=== PATIENT | male | born 1955 | race Asian ===

== ENCOUNTER 2020-07-21 05:23 | Emergency (ER) | payer OTHER, MEDICARE ==
[~2020-07-21] VITALS: Ht 175.3 cm; Wt 86.0 kg
[2020-07-21 06:17] LABS: BASOPHILS % 0.8 % (0.0-2.0); EOSINOPHILS % 0.2 % (0.0-5.0); HEMATOCRIT. 45.8 % (42.0-52.0); HEMOGLOBIN. 15.4 g/dL (14.0-18.0); LYMPHOCYTES % 19.7 % (20.0-50.0); MEAN CORPUSCULAR HEMOGLOBIN 29.6 pg (28.0-32.0); MEAN CORPUSCULAR VOLUME 88.3 fL (80.0-94.0); MEAN PLATELET VOLUME 7.5 fl (7.4-10.4); MONOCYTES % 6.4 % (2.0-8.0); NEUTROPHILS % 72.9 % (40.0-76.0); PLATELET 198 x1000/uL (130-400); RED BLOOD CELL COUNT 5.19 mill/uL (4.7-6.1); RED CELL DISTRIBUTION WIDTH 13.1 % (11.6-14.6)
[2020-07-21 06:25] LABS: CHLORIDE 99 mEq/L (98-107)
[2020-07-21 06:29] LABS: PROTHROMBIN TIME 10.9 sec (9.6-11.0)
[2020-07-21] MEDS ORDERED: ACETAMINOPHEN 325MG TABLET PO ONE (07:15)
[2020-07-21] MEDS ORDERED: PIPERACILLIN/TAZ 3.375G PREMIX 50 ML IV ONE (07:15)
[2020-07-21] MEDS ORDERED: VANCOMYCIN 1 G PREMIX 200 ML IV ONE (07:15)
[2020-07-21] MEDS ORDERED: SODIUM CHLORIDE 0.9% 1,000 ML IV ONE (09:15)
[2020-07-21 09:44] LABS: D-DIMER 0.69 mg/L FEU (<0.50)
[2020-07-21 09:55] LABS: BG BASE EXCESS -0.1 mmol/L (-2.0-2.0); BG CARBOXYHEMOGLOBIN 0.9 % (0.5-1.5); BG DEOXYHEMOGLOBIN 2.1 % (0.0-5.0); BG FRACTION INSPIRED OXYGEN 21; BG HCO3 ACT 17.1 mmol/L (22.0-26.0); BG METHEMOGLOBIN 0.1 % (0.0-1.5); BG OXYGEN SATURATION 97.9 % (92.0-98.5); BG OXYHEMOGLOBIN 96.9 % (94.0-97.0); BG PCO2 15.6 mmHg (35.0-45.0); BG PH 7.657 (7.350-7.450); BG PO2 87.3 mmHg (75.0-100.0); BG SAMPLE SITE RIGHT RADIAL; BG TOTAL HEMOGLOBIN 15.4 g/dL (12.0-18.0); BG VENT MODE ROOM AIR
[2020-07-21 09:58] LABS: CLARITY URINE CLEAR (CLEAR); COLOR URINE YELLOW (YELLOW); KETONES URINE 1+ (NEGATIVE); LEUKOCYTE ESTERASE URINE NEGATIVE (NEGATIVE); NITRITE URINE NEGATIVE (NEGATIVE); OCCULT BLOOD URINE NEGATIVE (NEGATIVE); PH URINE >=9.0 (4.5-8.0); PROTEIN URINE 2+ (NEGATIVE); SPECIFIC GRAVITY URINE 1.032 (1.005-1.030)
[2020-07-21 11:00] VITALS: BP 154/88
== END 2020-07-21 11:19 | disposition short-term general hospital (02) ==
LOC: ER 05:55 → CANBEDREQ 11:15 → ER 11:19
DX: U07.1 COVID-19 (principal); E11.9 Type 2 diabetes mellitus without complications; I10 Essential (primary) hypertension
CPT/HCPCS: 36415; 36600; 71045; 80053; 81003; 82375; 82550; 82728; 82805; 83605; 83615; 84145; 84484; 85025; 85379; 85384; 85610; 86140; 87040; 87086; 87635; 87804; 93005; 96365; 96366; 96367; 99291; J2543; J3370; J7030

== ENCOUNTER 2024-04-16 12:15 | Inpatient (IN) | payer OTHER, MEDICARE ==
[~2024-04-16] VITALS: Ht 175.3 cm; Wt 78.9 kg
[2024-04-16 14:03] LABS: BASOPHILS % 0.5 % (0.0-2.0); EOSINOPHILS % 2.9 % (0.0-5.0); HEMATOCRIT. 43.9 % (42.0-52.0); HEMOGLOBIN. 14.6 g/dL (14.0-18.0); LYMPHOCYTES % 29.2 % (20.0-50.0); MEAN CORPUSCULAR HGB CONC 33.3 g/dL (31.0-37.0); MEAN CORPUSCULAR VOLUME 93.1 fL (80.0-94.0); MEAN PLATELET VOLUME 7.3 fl (7.4-10.4); MONOCYTES % 10.9 % (2.0-8.0); NEUTROPHILS % 56.5 % (40.0-76.0); PLATELET 273 x1000/uL (130-400); RED BLOOD CELL COUNT 4.72 mill/uL (4.7-6.1); WHITE BLOOD COUNT 6.7 x1000/uL (4.5-11.0)
[2024-04-16 14:04] LABS: CHLORIDE 105 mEq/L (98-107); POTASSIUM 4.3 mEq/L (3.5-5.1); SODIUM 136 mEq/L (136-145)
[2024-04-16 14:05] LABS: CARBON DIOXIDE 23 mEq/L (21-32)
[2024-04-16 14:11] LABS: CREATININE 0.9 mg/dL (0.6-1.3); GLUCOSE 124 mg/dL (70-105); UREA NITROGEN BLOOD 20 mg/dL (9-23)
[2024-04-16 16:37] LABS: INR 0.9; PROTHROMBIN TIME 10.5 sec (9.6-11.0)
[2024-04-16 17:40] VITALS: BP 155/90; PULSE 77; RESP 18; TEMP 37.11408; O2SAT 98
[2024-04-16 17:44] VITALS: BP 155/90; PULSE 77; RESP 18; TEMP 37.1408
[2024-04-16] MEDS ORDERED: PNEUMOCOCCAL 23-VAL P-SAC VAC 0.5ML IM ONE (17:45)
[2024-04-16] MEDS ORDERED: METF-874 PO (18:07)
[2024-04-16] MEDS ORDERED: LOSA50TA41 PO (18:07)
[2024-04-16] MEDS ORDERED: GLIP10TA10 PO (18:07)
[2024-04-16] MEDS: DEXAMETHASONE 4MG/ML 1ML VIAL IV SCH (18:09)
[2024-04-16] MEDS ORDERED: ONDANSETRON HCL 4MG/2ML INJ IV PRN (18:45)
[2024-04-16] MEDS ORDERED: CLONIDINE 0.1MG TABLET PO PRN (18:45)
[2024-04-16] MEDS ORDERED: ACETAMINOPHEN 325MG TABLET PO PRN (18:45)
[2024-04-16] MEDS ORDERED: HYDROCODONE/ACETAMINOPHEN 5/325MG TABLET PO PRN (18:45)
[2024-04-16] MEDS ORDERED: NALOXONE HCL 0.4MG/ML VIAL IV PRN (19:00)
[2024-04-16 20:00] VITALS: BP 152/87; PULSE 72; RESP 20; TEMP 36.3918; O2SAT 94
[2024-04-16] MEDS: LOSARTAN 50 MG TABLET PO SCH (21:43)
[2024-04-16 22:00] VITALS: BP 141/98; PULSE 74; RESP 24; O2SAT 97
[2024-04-16] MEDS: GUAIFENESIN 600MG ER TABLET PO SCH (22:52)
[2024-04-17] VITALS (13 sets, daily range): BP systolic 110–133; BP diastolic 67–90; PULSE 64–116; RESP 15–28; TEMP 36.16956–36.61404; O2SAT 87–98
[2024-04-17 06:22] LABS: CARBON DIOXIDE 20 mEq/L (21-32); CHLORIDE 104 mEq/L (98-107); POTASSIUM 4.5 mEq/L (3.5-5.1); SODIUM 135 mEq/L (136-145)
[2024-04-17 06:24] LABS: CALCIUM 9.3 mg/dL (8.7-10.4)
[2024-04-17 06:27] LABS: T4 FREE 1.02 ng/dL (0.89-1.76); THYROID STIMULATING HORMONE 0.48 uIU/mL (0.55-4.78)
[2024-04-17 06:28] LABS: BASOPHILS % 0.1 % (0.0-2.0); CREATININE 0.8 mg/dL (0.6-1.3); EOSINOPHILS % 0.1 % (0.0-5.0); GLUCOSE 185 mg/dL (70-105); HEMATOCRIT. 42.7 % (42.0-52.0); HEMOGLOBIN. 14.4 g/dL (14.0-18.0); LYMPHOCYTES % 12.9 % (20.0-50.0); MEAN CORPUSCULAR HEMOGLOBIN 31.1 pg (28.0-32.0); MEAN CORPUSCULAR HGB CONC 33.7 g/dL (31.0-37.0); MEAN CORPUSCULAR VOLUME 92.5 fL (80.0-94.0); MEAN PLATELET VOLUME 7.7 fl (7.4-10.4); MONOCYTES % 1.9 % (2.0-8.0); PLATELET 291 x1000/uL (130-400); RED BLOOD CELL COUNT 4.62 mill/uL (4.7-6.1); RED CELL DISTRIBUTION WIDTH 13.6 % (11.6-14.6); TRIGLYCERIDE 238 mg/dL (0-150); UREA NITROGEN BLOOD 19 mg/dL (9-23); WHITE BLOOD COUNT 6.9 x1000/uL (4.5-11.0)
[2024-04-17 06:29] LABS: LDL CHOLESTEROL 91 mg/dL (5-100)
[2024-04-17 06:30] LABS: CHOLESTEROL 160 mg/dL (<200); HDL CHOLESTEROL 24 mg/dL (>55)
[2024-04-17] MEDS ORDERED: DEXTROSE 50% WATER 50ML SYRINGE IV PRN (12:30)
[2024-04-17] MEDS: BLOOD SUGAR DIAGNOSTIC STRIP TEST SCH (12:30)
[2024-04-17] MEDS: INSULIN LISPRO 100 UNITS/ML SUBCUT SCH (12:59)
[2024-04-17] MEDS: ATORVASTATIN CALCIUM 40MG TABLET PO SCH (21:11)
[2024-04-18] VITALS (35 sets, daily range): BP systolic 104–130; BP diastolic 62–103; PULSE 56–105; RESP 10–22; TEMP 36.44736–36.78072; O2SAT 94–99
[2024-04-18] MEDS ORDERED: THROMBIN (BOVINE) 5000 UNITS/VIAL TOP ONE (06:06)
[2024-04-18] MEDS ORDERED: GENTAMICIN SULF 40MG/ML 2ML VIAL ONE (06:06)
[2024-04-18] MEDS ORDERED: LIDOCAINE HCL/EPINEPHRINE 1%-EPI 1:100,000 20ML VIAL ONE (06:06)
[2024-04-18 06:29] LABS: CHLORIDE 104 mEq/L (98-107); POTASSIUM 4.1 mEq/L (3.5-5.1); SODIUM 136 mEq/L (136-145)
[2024-04-18 06:30] LABS: CALCIUM 9.8 mg/dL (8.7-10.4); CARBON DIOXIDE 20 mEq/L (21-32)
[2024-04-18 06:35] LABS: CREATININE 0.9 mg/dL (0.6-1.3); GLUCOSE 258 mg/dL (70-105); TRIGLYCERIDE 190 mg/dL (0-150); UREA NITROGEN BLOOD 26 mg/dL (9-23)
[2024-04-18 06:36] LABS: ALANINE AMINOTRANSFERASE 34 IU/L (10-49); LDL CHOLESTEROL 127 mg/dL (5-100); PROTEIN TOTAL 7.9 g/dL (6.0-8.3)
[2024-04-18 06:37] LABS: ASPARTATE AMINOTRANSFERASE 16 IU/L (<34); BILIRUBIN DIRECT 0.2 mg/dL (<=3.0); BILIRUBIN TOTAL 0.8 mg/dL (0.1-1.0); CHOLESTEROL 184 mg/dL (<200); HDL CHOLESTEROL 27 mg/dL (>55); PHOSPHORUS 3.9 mg/dL (2.5-4.9)
[2024-04-18 06:41] LABS: BASOPHILS % 0.1 % (0.0-2.0); HEMATOCRIT. 41.9 % (42.0-52.0); HEMOGLOBIN. 14.2 g/dL (14.0-18.0); MEAN CORPUSCULAR HGB CONC 33.8 g/dL (31.0-37.0); MEAN CORPUSCULAR VOLUME 91.7 fL (80.0-94.0); MEAN PLATELET VOLUME 7.8 fl (7.4-10.4); MONOCYTES % 2.7 % (2.0-8.0); NEUTROPHILS % 86.2 % (40.0-76.0); PLATELET 332 x1000/uL (130-400); RED BLOOD CELL COUNT 4.57 mill/uL (4.7-6.1); RED CELL DISTRIBUTION WIDTH 13.5 % (11.6-14.6); WHITE BLOOD COUNT 10.1 x1000/uL (4.5-11.0)
[2024-04-18] MEDS ORDERED: NICARDIPINE 40MG/200ML PREMIX 200 ML IV ONE (06:53)
[2024-04-18] MEDS ORDERED: INSULIN REGULAR (HUMULIN R) 1000UNITS/10ML VIAL ONE (07:02)
[2024-04-18] MEDS ORDERED: PROPOFOL 200MG/20ML VIAL IV ONE (07:09)
[2024-04-18] MEDS ORDERED: DEXAMETHASONE 4MG/ML 1ML VIAL ONE (07:09)
[2024-04-18] MEDS ORDERED: SUCCINYLCHOLINE CHLORIDE 200MG/10ML IV ONE (07:09)
[2024-04-18] MEDS ORDERED: ROCURONIUM BROMIDE 10MG/ML VIAL 5ML IV ONE (07:09)
[2024-04-18] MEDS ORDERED: LIDOCAINE HCL 1% 20ML VIAL ONE (07:12)
[2024-04-18] MEDS ORDERED: FENTANYL CITRATE/PF 50MCG/ML 5ML VIAL ONE (07:13)
[2024-04-18] MEDS ORDERED: SUGAMMADEX SODIUM 200MG/2ML VIAL IV ONE (09:23)
[2024-04-18] MEDS ORDERED: PHENYLEPHRINE HCL 10MG/ML 1ML IV ONE (09:28)
[2024-04-18] MEDS ORDERED: NICARDIPINE 100 MG in SODIUM CHLORIDE 0.9% 60 ML IV PRN (09:45)
[2024-04-18] MEDS ORDERED: ONDANSETRON HCL 4MG/2ML INJ IV PRN (10:00)
[2024-04-18] MEDS: INSULIN REGULAR (HUMULIN R) 1000UNITS/10ML VIAL IV SCH (10:45)
[2024-04-18] MEDS: ACETAMINOPHEN 1000MG/100ML 100 ML IV ONE (11:28)
[2024-04-18] MEDS: HYDROMORPHONE HCL/PF 1MG/ML INJ IV PRN (12:24)
[2024-04-18] MEDS ORDERED: CEFAZOLIN SODIUM 1000MG/VIAL IV SCH (14:00)
[2024-04-18] MEDS: DEXT 5%/LACTATED RINGERS 1,000 ML IV SCH (15:07)
[2024-04-18] MEDS: CEFAZOLIN 1000MG PREMIX 50ML IV SCH (18:29)
[2024-04-18] MEDS: MORPHINE SULFATE 4 MG/ML INJ (FOR IV/IM USE) IV PRN (18:32)
[2024-04-19] VITALS (59 sets, daily range): BP systolic 95–148; BP diastolic 60–95; PULSE 59–100; RESP 10–23; TEMP 36.3918–37.11408; O2SAT 91–99
[2024-04-19 05:15] LABS: CARBON DIOXIDE 25 mEq/L (21-32); CHLORIDE 106 mEq/L (98-107); POTASSIUM 4.1 mEq/L (3.5-5.1); SODIUM 137 mEq/L (136-145)
[2024-04-19 05:16] LABS: CALCIUM 8.7 mg/dL (8.7-10.4)
[2024-04-19 05:21] LABS: GLUCOSE 282 mg/dL (70-105); UREA NITROGEN BLOOD 21 mg/dL (9-23)
[2024-04-19 05:53] LABS: BASOPHILS % 0.1 % (0.0-2.0); HEMATOCRIT. 38.2 % (42.0-52.0); HEMOGLOBIN. 12.6 g/dL (14.0-18.0); MEAN CORPUSCULAR HEMOGLOBIN 30.5 pg (28.0-32.0); MEAN CORPUSCULAR HGB CONC 33.1 g/dL (31.0-37.0); MEAN CORPUSCULAR VOLUME 92.2 fL (80.0-94.0); MEAN PLATELET VOLUME 7.4 fl (7.4-10.4); MONOCYTES % 10.9 % (2.0-8.0); PLATELET 321 x1000/uL (130-400); RED BLOOD CELL COUNT 4.14 mill/uL (4.7-6.1); RED CELL DISTRIBUTION WIDTH 13.6 % (11.6-14.6); WHITE BLOOD COUNT 13.1 x1000/uL (4.5-11.0)
[2024-04-19] MEDS: HYDROCODONE/ACETAMINOPHEN 7.5/325MG TABLET PO PRN (11:29)
[2024-04-20] VITALS: BP 120/78; PULSE 108; RESP 20; TEMP 36.114; O2SAT 95
[2024-04-20 04:00] VITALS: BP 160/99; PULSE 104; RESP 20; TEMP 36.78072; O2SAT 98
[2024-04-20 08:00] VITALS: BP 142/83; PULSE 82; RESP 18; TEMP 36.72516; O2SAT 98
[2024-04-20 12:00] VITALS: BP 126/79; PULSE 81; RESP 18; TEMP 36.61404; O2SAT 97
[2024-04-20 16:00] VITALS: BP 148/89; PULSE 87; RESP 18; TEMP 36.61404; O2SAT 100
[2024-04-20 20:00] VITALS: BP 134/80; PULSE 94; RESP 20; TEMP 36.33624; O2SAT 96
[2024-04-20] MEDS: ATORVASTATIN CALCIUM 40MG TABLET PO SCH (22:34)
[2024-04-21] VITALS (7 sets, daily range): BP systolic 121–146; BP diastolic 70–94; PULSE 94–121; RESP 18–20; TEMP 36.28068–37.00296; O2SAT 93–98
[2024-04-21] MEDS ORDERED: NALOXONE HCL 0.4MG/ML VIAL IV PRN (20:30)
[2024-04-22] VITALS: BP 100/66; PULSE 91; RESP 20; TEMP 36.33624; O2SAT 93
[2024-04-22 04:00] VITALS: BP 133/86; PULSE 101; RESP 20; TEMP 36.28068; O2SAT 96
[2024-04-22 06:33] LABS: CALCIUM 9.7 mg/dL (8.7-10.4); CARBON DIOXIDE 26 mEq/L (21-32); CHLORIDE 100 mEq/L (98-107); POTASSIUM 3.5 mEq/L (3.5-5.1); SODIUM 134 mEq/L (136-145)
[2024-04-22 06:39] LABS: CREATININE 0.7 mg/dL (0.6-1.3); GLUCOSE 155 mg/dL (70-105); UREA NITROGEN BLOOD 11 mg/dL (9-23)
[2024-04-22 06:52] LABS: HEMATOCRIT. 39.4 % (42.0-52.0); HEMOGLOBIN. 13.3 g/dL (14.0-18.0); MEAN CORPUSCULAR HEMOGLOBIN 30.8 pg (28.0-32.0); MEAN CORPUSCULAR HGB CONC 33.7 g/dL (31.0-37.0); MEAN CORPUSCULAR VOLUME 91.3 fL (80.0-94.0); MEAN PLATELET VOLUME 7.6 fl (7.4-10.4); PLATELET 328 x1000/uL (130-400); RED BLOOD CELL COUNT 4.32 mill/uL (4.7-6.1); RED CELL DISTRIBUTION WIDTH 13.1 % (11.6-14.6); WHITE BLOOD COUNT 11.9 x1000/uL (4.5-11.0)
[2024-04-22 07:19] LABS: DIFFERENTIAL COMMENT 1
[2024-04-22 08:00] VITALS: BP 130/81; PULSE 84; RESP 18; TEMP 36.83628; O2SAT 97
[2024-04-22 12:00] VITALS: BP 138/80; PULSE 92; RESP 18; TEMP 36.33624; O2SAT 98
[2024-04-22 13:46] LABS: PLATELET ESTIMATE NORMAL
[2024-04-22 16:00] VITALS: BP 143/98; PULSE 84; RESP 18; TEMP 36.61404; O2SAT 98
[2024-04-22 20:00] VITALS: BP 112/66; PULSE 93; RESP 18; TEMP 36.61404; O2SAT 95
[2024-04-23] VITALS (7 sets, daily range): BP systolic 90–131; BP diastolic 63–81; PULSE 83–96; RESP 18–20; TEMP 36.00288–37.11408; O2SAT 96–98
[2024-04-23 07:21] LABS: CARBON DIOXIDE 24 mEq/L (21-32); CHLORIDE 99 mEq/L (98-107); POTASSIUM 3.7 mEq/L (3.5-5.1); SODIUM 133 mEq/L (136-145)
[2024-04-23 07:22] LABS: CALCIUM 9.3 mg/dL (8.7-10.4)
[2024-04-23 07:26] LABS: CREATININE 0.7 mg/dL (0.6-1.3)
[2024-04-23 07:27] LABS: GLUCOSE 179 mg/dL (70-105); UREA NITROGEN BLOOD 14 mg/dL (9-23)
[2024-04-23 09:15] LABS: BASOPHILS % 0.3 % (0.0-2.0); EOSINOPHILS % 2.5 % (0.0-5.0); HEMATOCRIT. 39.1 % (42.0-52.0); HEMOGLOBIN. 13.1 g/dL (14.0-18.0); LYMPHOCYTES % 17.3 % (20.0-50.0); MEAN CORPUSCULAR HEMOGLOBIN 30.7 pg (28.0-32.0); MEAN CORPUSCULAR HGB CONC 33.5 g/dL (31.0-37.0); MEAN CORPUSCULAR VOLUME 91.7 fL (80.0-94.0); MEAN PLATELET VOLUME 7.8 fl (7.4-10.4); MONOCYTES % 14.6 % (2.0-8.0); NEUTROPHILS % 65.3 % (40.0-76.0); PLATELET 364 x1000/uL (130-400); RED BLOOD CELL COUNT 4.26 mill/uL (4.7-6.1); RED CELL DISTRIBUTION WIDTH 13.1 % (11.6-14.6); WHITE BLOOD COUNT 10.7 x1000/uL (4.5-11.0)
== END 2024-04-23 14:00 | disposition home health service (06) | DRG 471 ==
LOC: ER 12:15 → 5EST 15:26 → EDBEDREQ 15:40 → MICUNO 04-18 15:45 → 8WST 04-19 17:55
PROVIDERS: ADMIT Internal Medicine; ATTEND Internal Medicine
PROC: 0RG2071 Fusion of 2 or more Cervical Vertebral Joints with Autologous Tissue Substitute, Posterior Approach, Posterior Column, Open Approach (ICD-10-PCS; principal; 2024-04-18)
PROC: 00NW0ZZ Release Cervical Spinal Cord, Open Approach (ICD-10-PCS; 2024-04-18)
PROC: 4A11X4G Monitoring of Peripheral Nervous Electrical Activity, Intraoperative, External Approach (ICD-10-PCS; 2024-04-18)
DX: M48.02 Spinal stenosis, cervical region (principal); G82.50 Quadriplegia, unspecified; G95.20 Unspecified cord compression; M50.023 Cervical disc disorder at C6-C7 level with myelopathy; W18.39XA Other fall on same level, initial encounter; M54.12 Radiculopathy, cervical region; I10 Essential (primary) hypertension; E11.9 Type 2 diabetes mellitus without complications; D72.829 Elevated white blood cell count, unspecified; Z79.899 Other long term (current) drug therapy; Y93.89 Activity, other specified; Y92.89 Other specified places as the place of occurrence of the external cause; Y99.8 Other external cause status; Z79.84 Long term (current) use of oral hypoglycemic drugs
CPT/HCPCS: 36415; 71045; 72040; 72141; 76000; 80048; 80061; 80076; 82962; 83036; 83735; 84100; 84439; 84443; 85025; 86850; 86900; 88304; 88311; 90732; 93005; 93306; 95925; 95926; 95928; 95929; 97116; 97162; 97166; 97530; 97535; 99291; A6261; J0330; J0690; J1100; J1170; J1580; J1815; J2270; J2704; J3010; J3490; J7050; J7121; L0172; C1713; J0131